=== PATIENT | male | born 1975 ===

== ENCOUNTER 2022-03-10 08:30 | Emergency (ER) | payer SELFPAY ==
[2022-03-10] MEDS ORDERED: Albuterol/Ipratropium 3.0-0.5 MG/3 ML Neb Soln NEB ONE (08:55)
[2022-03-10 09:38] LABS: RESPIRATORY SYNCYTIAL VIR NAA NEGATIVE (NEGATIVE)
[2022-03-10 09:41] LABS: ANION GAP 11.5 mEq/L (7-13)
[2022-03-10] MEDS ORDERED: Albuterol 6.7 GM Inhaler INH ONE (09:46)
[2022-03-10 09:56] LABS: CORONAVIRUS COVID-19 NAA POSITIVE (NEGATIVE)
== END 2022-03-10 10:37 | disposition home or self-care (01) ==
LOC: DL.ED 08:30
DX: U07.1 COVID-19 (principal); J45.909 Unspecified asthma, uncomplicated; E11.9 Type 2 diabetes mellitus without complications; E66.9 Obesity, unspecified; Z68.42 Body mass index [BMI] 45.0-49.9, adult; Z88.0 Allergy status to penicillin; Z72.0 Tobacco use
CPT/HCPCS: 0241U; 36415; 71045; 80053; 82150; 83690; 85025; 85379; 94640; 99285; A9270; 99284; J7620-GY